=== PATIENT | male | born 1965 | race Caucasian/White ===

== ENCOUNTER 2021-07-03 19:17 | Emergency (ER) | payer SELFPAY ==
[~2021-07-03] VITALS: Ht 180.3 cm; Wt 90.7 kg
[2021-07-03 19:17] VITALS: BP_SYST 147
--- NOTE | 2021-07-03 19:17 | NUR ---
Placed in room 1 . Placed on residential monitor, blood pressure machine and pulse oximeter. To gown for exam. Side rails up.
--- NOTE | 2021-07-03 19:25 | NUR ---
ER DR. LEONG AT THE BEDSIDE EXAMINING PT
--- NOTE | 2021-07-03 19:30 | NUR ---
PT BIB C/O LEFT CLIVICLE PAIN AND CHEST WALL PAIN X 24HRS. STATES HE TOOK TYLENOL AT HOME WITHOUT RELIEF. PT IS AMBULATORY, AAOX4, V/S STABLE
--- NOTE | 2021-07-03 20:27 | NUR ---
PORTABLE X-RAY AT THE BEDSIDE
[2021-07-03 20:51] VITALS: BP_SYST 133
--- NOTE | 2021-07-03 20:56 | NUR ---
Patient given written and verbal discharge instructions and verbalizes understanding. ER MD discussed with patient the results and treatment provided. Patient in stable condition. ID arm band removed. NO Rx given. Patient educated on pain management and to follow up with PMD. Pain Scale 0/10. Opportunity for questions provided and answered. Medication side effect fact sheet provided.
== END 2021-07-03 20:51 | disposition home or self-care (01) ==
LOC: SED 19:17
DX: M25.511 Pain in right shoulder (principal)
CPT/HCPCS: 71045; 73000-TC; 99284